=== PATIENT | male | born 1985 | race Caucasian/White ===

== ENCOUNTER 2019-04-02 08:56 | Emergency (ER) | payer BC ==
[2019-04-02] MEDS ORDERED: Triamcinolone Acetonide 40 MG/ML 1 ML MDV IM ONE (10:24)
--- NOTE | 2019-04-02 10:31 | EDM.PDOC ---
ED HPI GENERAL MEDICAL PROBLEM - General Chief Complaint: Allergic Reaction Stated Complaint: ALERGIC REACTION Time Seen by Provider: 04/02/19 10:26 Source of Information: Reports: Patient History Limitations: Reports: No Limitations - History of Present Illness INITIAL COMMENTS - FREE TEXT/NARRATIVE: pt arrived with a history of multiple reactions. He usually gets swelling of the upper lip/ Onset: Today, Other (pt started getting swelling of his upper lip last nite. There is nothing that he can think of that is causing the swelling. ) Duration: Hour(s): Location: Reports: Face Associated Symptoms: Reports: No Other Symptoms - Related Data Allergies Allergy/AdvReac Type Severity Reaction Status Date / Time No Known Allergies Allergy Verified 04/02/19 09:49 Home Meds: Home Meds Loratadine [Claritin] 1 tab PO DAILY 04/02/19 [History] Past Medical History HEENT History: Reports: Other (See Below) Other HEENT History: tinnitis Musculoskeletal History: Reports: Fracture Dermatologic History: Reports: Urticaria Social & Family History - Tobacco Use Smoking Status *Q: Former Smoker Used Tobacco, but Quit: Yes Month/Year Tobacco Last Used: 2014 - Alcohol Use Days Per Week of Alcohol Use: 3 Number of Drinks Per Day: 3 Total Drinks Per Week: 9 - Recreational Drug Use Recreational Drug Use: No ED ROS ALLERGIC REACTION - Review of Systems Review Of Systems: See Below Constitutional: Reports: No Symptoms HEENT: Reports: Other ( swelling of his upper lip. ) Respiratory: Reports: No Symptoms, Other (no shortness of breath. ) Cardiovascular: Reports: No Symptoms Endocrine: Reports: No Symptoms GI/Abdominal: Reports: No Symptoms : Reports: No Symptoms Musculoskeletal: Reports: No Symptoms Skin: Reports: No Symptoms ED EXAM GENERAL NO PERIP PULSE - Physical Exam Exam: See Below Text/Narrative:: Pt has swelling of his upper lip. He did eat some gummy worms last nite but he has eaten them multiple times in the past. Exam Limited By: No Limitations General Appearance: Alert, No Apparent Distress, Anxious Ears: Normal TMs Nose: Normal Inspection Throat/Mouth: Other ( pt has swelling of the upper lip. ) Head: Atraumatic Neck: Normal Inspection Respiratory/Chest: No Respiratory Distress Cardiovascular: Regular Rate, Rhythm GI/Abdominal: Soft, Non-Tender (Male) Exam: Deferred Rectal (Males) Exam: Deferred Back Exam: Normal Inspection Extremities: Normal Inspection Neurological: Alert, Oriented, Normal Cognition Course - Vital Signs Last Recorded V/S: Last Vital Signs Temp 36.3 C 04/02/19 09:48 Pulse 74 04/02/19 09:48 Resp 16 04/02/19 09:48 BP 136/76 04/02/19 09:48 Pulse Ox 96 04/02/19 09:48 - Orders/Labs/Meds Orders: Active Orders 24 hr Category Date Time Status Triamcinolone Acetonide [Kenalog-40] Med 04/02/19 10:24 Once 60 mg IM ASDIRECTED ONE - Re-Assessments/Exams Free Text/Narrative Re-Assessment/Exam: 04/02/19 10:32 pt was given kenalog 60 mg im. Departure - Departure Time of Disposition: 10:32 Disposition: Home, Self-Care 01 Condition: Fair Clinical Impression: Allergic reaction - Discharge Information Referrals: PCP,None [Primary Care Provider] - Care Plan Goals: cool pack lip, use clartin as previosly ordered this am, may had benadryl 50 mg at hs if still swollen, consider allergy testing. - My Orders Last 24 Hours: My Active Orders 04/02/19 10:24 Triamcinolone Acetonide [Kenalog-40] 60 mg IM ASDIRECTED ONE - Assessment/Plan Last 24 Hours: My Active Orders 04/02/19 10:24 Triamcinolone Acetonide [Kenalog-40] 60 mg IM ASDIRECTED ONE
== END 2019-04-02 11:13 | disposition home or self-care (01) ==
LOC: EDBD 08:56 → JP.ED 08:56
DX: T78.40XA Allergy, unspecified, initial encounter (principal); Z87.891 Personal history of nicotine dependence; Z79.899 Other long term (current) drug therapy
CPT/HCPCS: 96372; 99282; J3301